=== PATIENT | female | born 1985 | race Caucasian/White ===

== ENCOUNTER 2018-11-26 18:43 | Emergency (ER) | payer SELFPAY ==
--- NOTE | 2018-11-26 19:43 | EDM.PDOC ---
ED HPI GENERAL MEDICAL PROBLEM - General Chief Complaint: Lower Extremity Injury/Pain Stated Complaint: R FOOT HURT Time Seen by Provider: 11/26/18 19:34 - History of Present Illness INITIAL COMMENTS - FREE TEXT/NARRATIVE: HISTORY AND PHYSICAL: History of present illness: The patient is a 33-year-old female with a history of a bilateral tubal ligation and who says that in the past she has injured her Achilles tendon who presents with complaints of pain to her right calf after she slipped and fell last evening on the ice. She said her right leg went out from underneath her and she is not sure what her foot did but she has been having pain to her calf throughout the day. Last evening she didn't have much pain and should not pass out or blackout and had no head neck or back injury and no hip injury. She says the bones of her hip and thigh knee and leg ankle and foot are not tender but it is the calf and she thinks slightly swollen. She says she is able to move the foot up and down but is more discomforting when she does that and when she weight bears. She has been using [id number] ibuprofen and icing the leg. She is here for evaluation. She has no other systemic complaints. Review of systems: As per history of present illness and below otherwise all systems reviewed and negative. Past medical history: As per history of present illness and as reviewed below otherwise noncontributory. Surgical history: As per history of present illness and as reviewed below otherwise noncontributory. Social history: No reported history of drug or alcohol abuse. Family history: As per history of present illness and as reviewed below otherwise noncontributory. Physical exam: HEENT: Atraumatic, normocephalic, negative for conjunctival pallor or scleral icterus, mucous membranes moist, throat clear, neck supple, nontender, trachea midline. Lungs: Clear to auscultation, breath sounds equal bilaterally, chest nontender. Heart: S1S2, regular rate and rhythm no overt murmurs Abdomen: Soft, nondistended, nontender. NABS Pelvis: Stable nontender. No lateral hip tenderness on the right Genitourinary: Deferred. Rectal: Deferred. Extremities: Atraumatic full range of motion of all extremities including the right lower leg but no palpable bony deformities of the knee tib-fib ankle or foot. The right medial calf is slightly more swollen than the contralateral side but there is no erythema warmth or ecchymosis. The patient can dorsi and plantar flex the foot although it is discomforting and the Achilles tendon is palpable. Pulses are intact distally and the legs are, negative for cords . Neurovascular unremarkable. Neuro: Awake, alert, oriented. Cranial nerves II through XII unremarkable. Cerebellum unremarkable. Motor and sensory unremarkable throughout. Exam nonfocal. Diagnostics: X-ray right tib-fib Therapeutics: Toradol [place] ortho boot crutches Impression: Right calf musculoskeletal contusion/injury Definitive disposition and diagnosis as appropriate pending reevaluation and review of above. Right calf Pain Score (Numeric/FACES): 9 - Related Data Allergies Allergy/AdvReac Type Severity Reaction Status Date / Time No Known Allergies Allergy Verified 11/26/18 19:34 Home Meds: Home Meds . [No Known Home Meds] 11/26/18 [History] Review of Systems - Review of Systems Review Of Systems: ROS reveals no pertinent complaints other than HPI. ED EXAM, GENERAL - Physical Exam Exam: See Below (see dictation) Course - Vital Signs Last Recorded V/S: Last Vital Signs Temp 36.3 C 11/26/18 19:36 Pulse 82 11/26/18 19:36 Resp 20 11/26/18 19:36 BP 142/89 H 11/26/18 19:36 Pulse Ox 98 11/26/18 19:36 - Orders/Labs/Meds Orders: Active Orders 24 hr Category Date Time Status DME for Discharge [COMM] Stat Oth 11/26/18 20:04 Ordered Meds: Medications Discontinued Medications Generic Name Dose Route Start Last Admin Trade Name Sveta PRN Reason Stop Dose Admin Hydrocodone Bitart/Acetaminophen 1 tab 11/26/18 19:40 11/26/18 19:59 [place] 325-7.5 Mg PO 11/26/18 19:41 1 tab ONETIME ONE Administration Ketorolac Tromethamine 60 mg 11/26/18 19:40 11/26/18 20:00 Toradol IM 11/26/18 19:41 60 mg ONETIME ONE Administration Departure - Departure Time of Disposition: 20:04 Disposition: Home, Self-Care 01 Condition: Good Clinical Impression: Injury of calf - Discharge Information Referrals: PCP,None [Primary Care Provider] - Forms: ED Department Discharge Additional Instructions: The following information is given to patients seen in the emergency department who are being discharged to home. This information is to outline your options for follow-up care. We provide all patients seen in our emergency department with a follow-up referral. The need for follow-up, as well as the timing and circumstances, are variable depending upon the specifics of your emergency department visit. If you don't have a primary care physician on staff, we will provide you with a referral. We always advise you to contact your personal physician following an emergency department visit to inform them of the circumstance of the visit and for follow-up with them and/or the need for any referrals to a consulting specialist. The emergency department will also refer you to a specialist when appropriate. This referral assures that you have the opportunity for followup care with a specialist. All of these measure are taken in an effort to provide you with optimal care, which includes your followup. Under all circumstances we always encourage you to contact your private physician who remains a resource for coordinating your care. When calling for followup care, please make the office aware that this follow-up is from your recent emergency room visit. If for any reason you are refused follow-up, please contact the [facility] emergency department at and ask to speak to the emergency department charge nurse. [facility]--Orthopedic clinic [address] [id number] Please wear ortho boot you have been prescribed with crutches and do not weight- bear for the next 3 days and please schedule a follow-up appointment in our orthopedics clinic for further care and evaluation. Ice and elevate as much as possible and remove the boot every couple of hours and move the ankle up and down and rotated as we discussed. Use [id number] ibuprofen 600-800 mg every 6-8 hours and take the stronger pain medications for sleep times. Return to ER as needed and as discussed - My Orders Last 24 Hours: My Active Orders 11/26/18 20:04 DME for Discharge [COMM] Stat - Assessment/Plan Last 24 Hours: My Active Orders 11/26/18 20:04 DME for Discharge [COMM] Stat
[2018-11-26] MEDS: Acetaminophen/HYDROcodone 325-7.5 MG Tab PO ONE (19:59)
[2018-11-26] MEDS: Ketorolac 60 MG/2 ML SDV IM ONE (20:00)
--- NOTE | 2018-11-26 20:00 | CR ---
Indication: Fell on ice 2 days ago. Calf pain. Technique: Two views of the right lower leg were obtained. Comparison: None Findings: No acute fracture or subluxation is identified. The joint spaces are well maintained. Impression: No acute fracture. Dictated by Mirian Goyal MD @ Nov 26 2018 7:59PM Signed by Dr. Mirian Goyal @ Nov 26 2018 8:00PM
== END 2018-11-26 20:30 | disposition home or self-care (01) ==
LOC: MW.ED 18:43
DX: S80.11XA Contusion of right lower leg, initial encounter (principal); W01.0XXA Fall on same level from slipping, tripping and stumbling without subsequent striking against object, initial encounter
CPT/HCPCS: 73590; 96372; 99283; A9270; J1885

== ENCOUNTER 2019-05-24 09:10 | Emergency (ER) | payer MEDICAID ==
[2019-05-24] MEDS ORDERED: Ketorolac 30 MG/ML SDV IVPUSH ONE (09:52)
[2019-05-24] MEDS ORDERED: Sodium Chloride 0.9% 1,000 ML IV ONE (09:52)
--- NOTE | 2019-05-24 09:53 | EDM.PDOC ---
ED HPI GENERAL MEDICAL PROBLEM - General Chief Complaint: Back Pain or Injury Stated Complaint: SIDE PAIN Time Seen by Provider: 05/24/19 09:48 - History of Present Illness INITIAL COMMENTS - FREE TEXT/NARRATIVE: HISTORY AND PHYSICAL: History of present illness: Patient is a 34-year-old white female presents with concern of acute left flank pain patient has had chronic intermittent back pain but states this is different and more severe it's without associated nausea vomiting fever chills or other complaints she denies urinary symptoms Review of systems: As per history of present illness and below otherwise all systems reviewed and negative. Past medical history: As per history of present illness and as reviewed below otherwise noncontributory. Surgical history: As per history of present illness and as reviewed below otherwise noncontributory. Social history: No reported history of drug or alcohol abuse. Family history: As per history of present illness and as reviewed below otherwise noncontributory. Physical exam: HEENT: Atraumatic, normocephalic, pupils reactive, negative for conjunctival pallor or scleral icterus, mucous membranes moist, throat clear, neck supple, nontender, trachea midline. Lungs: Clear to auscultation, breath sounds equal bilaterally, chest nontender. Heart: S1S2, regular, negative for clicks, rubs, or JVD. Abdomen: Soft, nondistended, nontender. Negative for masses or hepatosplenomegaly. Left-sided costovertebral tenderness. Pelvis: Stable nontender. Genitourinary: Deferred. Rectal: Deferred. Extremities: Atraumatic, negative for cords or calf pain. Neurovascular unremarkable. Neuro: Awake, alert, oriented. Cranial nerves II through XII unremarkable. Cerebellum unremarkable. Motor and sensory unremarkable throughout. Exam nonfocal. Diagnostics: CBC CMP UA hCG CT abdomen and pelvis Therapeutics: Normal saline 1 L bolus Toradol 30 mg IV Impression: #1 left flank pain Definitive disposition and diagnosis as appropriate pending reevaluation and review of above. left flank Pain Score (Numeric/FACES): 1 - Related Data Allergies Allergy/AdvReac Type Severity Reaction Status Date / Time codeine Allergy Hives Verified 05/24/19 09:39 Home Meds: Home Meds . [No Known Home Meds] 11/26/18 [History] Past Medical History Gastrointestinal History: Reports: Hiatal Hernia Genitourinary History: Reports: None [employer] History: Reports: - Infectious Disease History Infectious Disease History: Reports: Chicken Pox - Past Surgical History GI Surgical History: Reports: None, Hernia Repair/Other Female Surgical History: Reports: Section Social & Family History - Family History Family Medical History: Noncontributory - Tobacco Use Smoking Status *Q: Current Every Day Smoker Years of Tobacco use: 22 Packs/Tins Daily: 1 - Caffeine Use Caffeine Use: Reports: Coffee - Recreational Drug Use Recreational Drug Use: No ED ROS GENERAL - Review of Systems Review Of Systems: ROS reveals no pertinent complaints other than HPI. ED EXAM, GENERAL - Physical Exam Exam: See Below (See dictation) Course - Vital Signs Last Recorded V/S: Last Vital Signs Temp 36.3 C 05/24/19 09:39 Pulse 88 05/24/19 09:39 Resp 18 05/24/19 09:39 BP 140/94 H 05/24/19 09:39 Pulse Ox 95 05/24/19 09:39 - Orders/Labs/Meds Labs: Laboratory Tests 05/24/19 05/24/19 05/24/19 Range/Units 09:55 09:55 10:25 WBC 10.87 (4.0-11.0) K/uL RBC 4.57 (4.30-5.90) M/uL Hgb 14.8 (12.0-16.0) g/dL Hct 43.4 (36.0-46.0) % MCV 95.0 (80.0-98.0) fL MCH 32.4 H (27.0-32.0) pg MCHC 34.1 (31.0-37.0) g/dL RDW Std Deviation 47.9 (28.0-62.0) fl RDW Coeff of Hitesh 14 (11.0-15.0) % Plt Count 417 H (150-400) K/uL MPV 10.60 (7.40-12.00) fL Neut % (Auto) 65.4 (48.0-80.0) % Lymph % (Auto) 23.6 (16.0-40.0) % Hood % (Auto) 9.0 (0.0-15.0) % Eos % (Auto) 1.7 (0.0-7.0) % Baso % (Auto) 0.3 (0.0-1.5) % Neut # (Auto) 7.1 H (1.4-5.7) K/uL Lymph # (Auto) 2.6 H (0.6-2.4) K/uL Hood # (Auto) 1.0 H (0.0-0.8) K/uL Eos # (Auto) 0.2 (0.0-0.7) K/uL Baso # (Auto) 0.0 (0.0-0.1) K/uL Nucleated RBC % 0.0 /100WBC Nucleated RBCs # 0 K/uL Sodium (136-145) mmol/L Potassium (3.5-5.1) mmol/L Chloride (98-107) mmol/L Carbon Dioxide (21.0-32.0) mmol/L BUN (7.0-18.0) mg/dL Creatinine (0.6-1.0) mg/dL Est Cr Clr Drug Dosing mL/min Estimated GFR (MDRD) ml/min Glucose (74-106) mg/dL Calcium (8.5-10.1) mg/dL Total Bilirubin (0.2-1.0) mg/dL AST (15-37) IU/L ALT (14-63) IU/L Alkaline Phosphatase (46-116) U/L Total Protein (6.4-8.2) g/dL Albumin (3.4-5.0) g/dL Globulin (2.6-4.0) g/dL Albumin/Globulin Ratio (0.9-1.6) Urine Color YELLOW Urine Appearance CLEAR Urine pH 5.0 (5.0-8.0) Ur Specific Dumas >= 1.030 (1.001-1.035) Urine Protein TRACE H (NEGATIVE) mg/dL Urine Glucose (UA) 100 H (NEGATIVE) mg/dL Urine Ketones NEGATIVE (NEGATIVE) mg/dL Urine Occult Blood TRACE-INTACT H (NEGATIVE) Urine Nitrite NEGATIVE (NEGATIVE) Urine Bilirubin NEGATIVE (NEGATIVE) Urine Urobilinogen 0.2 (<2.0) EU/dL Ur Leukocyte Esterase NEGATIVE (NEGATIVE) Urine RBC 0-1 (0-2/HPF) Urine WBC 1-3 (0-5/HPF) Ur Epithelial Cells MANY (NONE-FEW) Amorphous Sediment LIGHT (NEGATIVE) Urine Bacteria 1+ H (NEGATIVE) Urine Mucus MODERATE (NONE-MOD) Urine HCG, Qual NEGATIVE (NEGATIVE) 05/24/19 Range/Units 10:25 WBC (4.0-11.0) K/uL RBC (4.30-5.90) M/uL Hgb (12.0-16.0) g/dL Hct (36.0-46.0) % MCV (80.0-98.0) fL MCH (27.0-32.0) pg MCHC (31.0-37.0) g/dL RDW Std Deviation (28.0-62.0) fl RDW Coeff of Hitesh (11.0-15.0) % Plt Count (150-400) K/uL MPV (7.40-12.00) fL Neut % (Auto) (48.0-80.0) % Lymph % (Auto) (16.0-40.0) % Hood % (Auto) (0.0-15.0) % Eos % (Auto) (0.0-7.0) % Baso % (Auto) (0.0-1.5) % Neut # (Auto) (1.4-5.7) K/uL Lymph # (Auto) (0.6-2.4) K/uL Hood # (Auto) (0.0-0.8) K/uL Eos # (Auto) (0.0-0.7) K/uL Baso # (Auto) (0.0-0.1) K/uL Nucleated RBC % /100WBC Nucleated RBCs # K/uL Sodium 140 (136-145) mmol/L Potassium 3.9 (3.5-5.1) mmol/L Chloride 105 (98-107) mmol/L Carbon Dioxide 20.2 L (21.0-32.0) mmol/L BUN 13 (7.0-18.0) mg/dL Creatinine 0.6 (0.6-1.0) mg/dL Est Cr Clr Drug Dosing 98.75 mL/min Estimated GFR (MDRD) > 60.0 ml/min Glucose 95 (74-106) mg/dL Calcium 9.0 (8.5-10.1) mg/dL Total Bilirubin 0.3 (0.2-1.0) mg/dL AST 16 (15-37) IU/L ALT 44 (14-63) IU/L Alkaline Phosphatase 67 (46-116) U/L Total Protein 7.1 (6.4-8.2) g/dL Albumin 3.5 (3.4-5.0) g/dL Globulin 3.6 (2.6-4.0) g/dL Albumin/Globulin Ratio 1.0 (0.9-1.6) Urine Color Urine Appearance Urine pH (5.0-8.0) Ur Specific Dumas (1.001-1.035) Urine Protein (NEGATIVE) mg/dL Urine Glucose (UA) (NEGATIVE) mg/dL Urine Ketones (NEGATIVE) mg/dL Urine Occult Blood (NEGATIVE) Urine Nitrite (NEGATIVE) Urine Bilirubin (NEGATIVE) Urine Urobilinogen (<2.0) EU/dL Ur Leukocyte Esterase (NEGATIVE) Urine RBC (0-2/HPF) Urine WBC (0-5/HPF) Ur Epithelial Cells (NONE-FEW) Amorphous Sediment (NEGATIVE) Urine Bacteria (NEGATIVE) Urine Mucus (NONE-MOD) Urine HCG, Qual (NEGATIVE) Meds: Medications Discontinued Medications Generic Name Dose Route Start Last Admin Trade Name Freq PRN Reason Stop Dose Admin Sodium Chloride 1,000 mls @ 999 mls/hr 05/24/19 09:52 05/24/19 10:24 Normal Saline IV 05/24/19 10:52 999 mls/hr STAT ONE Administration Ketorolac Tromethamine 30 mg 05/24/19 09:52 05/24/19 10:23 Toradol IVPUSH 05/24/19 09:53 30 mg ONETIME ONE Administration Ondansetron HCl 4 mg 05/24/19 11:40 05/24/19 11:45 Zofran IVPUSH 05/24/19 11:41 4 mg ONETIME ONE Administration Departure - Departure Time of Disposition: 12:26 Disposition: Home, Self-Care 01 Condition: Good Clinical Impression: UTI (urinary tract infection) - Discharge Information Referrals: PCP,Unknown [Primary Care Provider] - Forms: ED Department Discharge Additional Instructions: The following information is given to patients seen in the emergency department who are being discharged to home. This information is to outline your options for follow-up care. We provide all patients seen in our emergency department with a follow-up referral. The need for follow-up, as well as the timing and circumstances, are variable depending upon the specifics of your emergency department visit. If you don't have a primary care physician on staff, we will provide you with a referral. We always advise you to contact your personal physician following an emergency department visit to inform them of the circumstance of the visit and for follow-up with them and/or the need for any referrals to a consulting specialist. The emergency department will also refer you to a specialist when appropriate. This referral assures that you have the opportunity for followup care with a specialist. All of these measure are taken in an effort to provide you with optimal care, which includes your followup. Under all circumstances we always encourage you to contact your private physician who remains a resource for coordinating your care. When calling for followup care, please make the office aware that this follow-up is from your recent emergency room visit. If for any reason you are refused follow-up, please contact the [facility] emergency department at and asked to speak to the emergency department charge nurse. Keflex as prescribed push fluids follow primary medical doctor as needed as discussed return as needed as discussed Motrin/Tylenol as directed
[2019-05-24 11:26] LABS: BLOOD UREA NITROGEN,BUN 13 mg/dL (7.0-18.0); CARBON DIOXIDE,CO2 20.2 mmol/L (21.0-32.0); CHLORIDE,CL 105 mmol/L (98-107); GLUCOSE RANDOM 95 mg/dL (74-106); POTASSIUM,K 3.9 mmol/L (3.5-5.1); SODIUM,NA 140 mmol/L (136-145)
[2019-05-24] MEDS ORDERED: Ondansetron 4 MG/2 ML SDV IVPUSH ONE (11:40)
--- NOTE | 2019-05-24 12:15 | CT ---
INDICATION: 34 year-old female. Abdominal pain. TECHNIQUE: Noncontrast CT of the abdomen and pelvis. FINDINGS: Clear included lung bases. The unenhanced liver is negative for masses or biliary dilatation with the exception of a small well-circumscribed cyst superior right hepatic lobe image 24 series 201. No splenomegaly. The unenhanced pancreas, partly contracted gallbladder, both adrenal glands, and kidneys are within normal limits. Trace vascular calcification within a normal caliber abdominal aorta and iliac arteries. The uterus and urinary bladder are unremarkable. 2 cm cyst right ovary. No bowel obstruction or ileus. No ascites or lymphadenopathy. No evidence for appendicitis or diverticular disease. Calcified pelvic phleboliths. The included skeleton is unremarkable. IMPRESSION: Negative noncontrast abdominal pelvic CT. Please note that all CT scans at this facility use dose modulation, iterative reconstruction, and/or weight-based dosing when appropriate to reduce radiation dose to as low as reasonably achievable. Dictated by Misael Devine MD @ May 24 2019 12:04PM Signed by Dr. Misael Devine @ May 24 2019 12:14PM
== END 2019-05-24 12:37 | disposition home or self-care (01) ==
LOC: MW.ED 09:10
DX: N39.0 Urinary tract infection, site not specified (principal); F17.210 Nicotine dependence, cigarettes, uncomplicated; Z88.5 Allergy status to narcotic agent
CPT/HCPCS: 36415; 74176; 80053; 81001; 81025; 85025; 96361; 96374; 96375; 99284; J1885; J2405; J7040